=== PATIENT | female | born 1990 | race Caucasian/White ===

== ENCOUNTER 2016-05-24 07:36 | Inpatient (IN) | payer OTHER ==
[~2016-05-24] VITALS: Ht 167.6 cm; Wt 69.4 kg
[~2016-05-24 07:36] MED LIST: Ascorbic Acid PO; BUPR2TAB SL; DOCU-41 PO; FERR-74 PO; IBUP-1827 PO; PREN-56 PO; RANI75TA72 PO
[2016-05-24] MEDS ORDERED: Lactated Ringer's 1,000 ML IV SCH ×2 (08:47→11:25)
[2016-05-24] MEDS ORDERED: Methylergonovine 0.2 mg/mL Inj IM PRN ×2 (08:50→11:25)
[2016-05-24] MEDS ORDERED: Hemorrhage Kit, Post Partum XX ONE ×2 (08:50→11:25)
[2016-05-24] MEDS ORDERED: Oxytocin 10 Unit/mL Inj IM PRN ×2 (08:50→11:25)
[2016-05-24] MEDS ORDERED: Sodium Citrate-Citric Acid 15 mL Solution PO SCH (08:50)
[2016-05-24] MEDS ORDERED: Carboprost 250 mCg/mL Inj IM PRN ×2 (08:50→11:25)
[2016-05-24 08:55] LABS: Mean Corpuscular Volume 81.8 fL (81-100)
--- NOTE | 2016-05-24 09:31 | PCM.HPANE ---
Patient Data Surgeon Admitting Provider:Surjit Velez MD Attending Provider:Surjit Velez MD Primary Care Physician:Aden Grossman MD Other Provider:Andre Brewer Anesthesia Reason for Visit Repeat C/S REPEAT C/S Ht/WT & BMI Body Mass Index Allergies Coded Allergies: No Known Allergies (Unverified , 01/24/15) Diabetes History Hx Diabetes?: No MRSA MRSA: No Medications Hypertension Medication: No Home Meds Incl Beta Faustino: No Active Scripts Ibuprofen 600 Mg [id number] Mg PO Q6H PRN For Mild Pain #40 TABLET Ref 1 Prov:Surjit Velez MD 01/25/15 Ferrous Sulfate (Feosol)325 Mg Fkmycc231 Mg PO BIDWM #60 TABLET Ref 2 Prov:Surjit Velez MD 01/25/15 Docusate Sodium (Colace)100 Mg Khxfdcj888 Mg PO BID #60 CAPSULE Ref 2 Prov:Surjit Velez MD 01/25/15 [Ascorbic Acid] (Vitamin C)500 MG TABLET No Conflict Tuzkm160 Mg PO BIDWM #60 TABLET Ref 2 Prov:Surjit Velez MD 01/25/15 Reported Medications Pew351/Iron Fumarate/FA/Dss ( 19 Tablet)1 Each Tablet1 Each PO DAILY 01/24/15 Ranitidine HCl (Heartburn Relief)75 Mg Acmxtb52 Mg PO BID #2 TABLET 01/24/15 Buprenorphine 2 Mg Tab.subl2 Mg SL DAILY withdrawl #1 TABLET Ref 0 01/24/15 History Hx of Heart Problems?: No Cardiovascular History: Denies:: Chest Pain Hypertension Irregular Heartbeat Hx of Respiratory Problem?: No Respiratory History: Denies:: Asthma Hx Neurologic Problems?: No Neurological History: Denies:: Headaches Hx of GI Problems?: Yes Gastrointestinal History: Positive for:: Gastroesphageal Reflux (while - taking ranitidine) Female Hx: Positive for:: Currently Musculoskeletal History: Positive for:: Back Injury (LBP while ) Hx Surgeries?: No Hx Diabetes: No Hx Substance Use: Yes (h/o heroin abuse - clean 18 mos., on Suboxone) Smoking Status: Former Smoker Stop/Bang Treated for Sleep Apnea?: No Do You Have a CPAP Machine?: No BRADLEY Risk Assessment: Low Risk, <3 Yes Risk Assessment Category Category 1A: Patient has history of documented sleep apnea, and HAS NOT received any narcotic, sedative or anesthesia administration during this stay. Category 1B: Patient has history of documented sleep apnea, and HAS received any narcotic , sedative or anesthesia administration during this stay Category 2: Patient has SUSPECTED Obstructive Sleep Apnea, and HAS received any narcotic , sedative or anesthesia administration during this stay. Category 3: Patient has SUSPECTED Obstructive Sleep Apnea and HAS NOT received narcotic, sedative or anesthesia administration during this stay. Category 4: Outpatient in Procedural Areas with known sleep apnea or who screen positive for High Risk via the STOP/BANG questionnaire. Exam Exam General Appearance: Oriented X3 HEENT/AIRWAY: MP 1 Lungs: Normal Air Movement Heart: Regular Rate/Rhythm Meds/Labs/Diagnostics Labs Test 05/24/16 08:10 White Blood Count 10.3th/mm3 (3.8-10.1) Red Blood Count 4.23mil/mm3 (3.90-5.20) Hemoglobin 11.0g/dL (12.0-15.6) Hematocrit 34.6% (35.0-46.0) Mean Corpuscular Volume 81.8fL (81-100) Mean Corpuscular Hemoglobin 26.0pg (27.0-35.0) Mean Corpuscular Hemoglobin Concent 31.8% (32.0-37.0) Red Cell Distribution Width 12.8% (12.3-15.4) Platelet Count 243bil/L (150-400) Plan Impression Patient chart reviewed, patient interviewed and anesthestic plan with risks, benefits, and alternatives discussed, and informed consent obtained. ASA Physical Status: ASA3 Severe Disease Anesthetic Plan: SAB Bene/Risks/Altern/Consents: Yes HP Complete Prior to Induction: Yes Flako Mascorro MD May 24, 2016 09:31
[2016-05-24] MEDS ORDERED: CeFAZolin Inj 2 GM in IV Premix 1 EACH IV ONE (09:35)
[2016-05-24] MEDS ORDERED: Morphine PF 1 mg/mL 10 mL Inj ONE (09:36)
[2016-05-24] MEDS ORDERED: Atropine 0.4 mg/mL Inj IV PRN (09:45)
[2016-05-24] MEDS ORDERED: EPHEDrine Sulfate 50 mg/mL Inj IVPUSH PRN (09:45)
[2016-05-24] MEDS ORDERED: Phenylephrine/NS-PF 100 mCg/mL 5 mL Syringe IVPUSH PRN (09:45)
[2016-05-24] MEDS ORDERED: fentaNYL-PF 50 mCg/mL 2 mL Inj IVPUSH PRN (09:45)
[2016-05-24] MEDS ORDERED: Morphine PF 1 mg/mL 10 mL Inj EPIDURAL ONE (09:45)
[2016-05-24] MEDS ORDERED: MetoCLOpramide 5 mg/mL 2 mL Inj IVPUSH PRN (09:45)
[2016-05-24] MEDS ORDERED: Dexamethasone 4 mg/mL Inj IVPUSH PRN (09:45)
[2016-05-24] MEDS ORDERED: HYDROmorphone 1 mg/mL Inj IVPUSH PRN (09:45)
[2016-05-24] MEDS ORDERED: Ondansetron 2 mg/mL 2 mL Inj IVPUSH PRN (09:45)
--- NOTE | 2016-05-24 11:24 | PCM.ANEP2 ---
Post Anesthesia Evaluation ASA/CMS Post Anesthesia VS in Patient's Normal Range?: Yes Resp Stable; Airway Patent?: Yes CV Function & Hydration Stable: Yes Mental Status Recovered?: Yes Pain control Satisfactory?: Yes N/V Control Satisfactory?: Yes Flako Mascorro MD May 24, 2016 11:24
--- NOTE | 2016-05-24 11:24 | PCM.ANEP1 ---
Post Anesthesia Phase 1 PACU Phase 1 Assessment Anesthetic Administered: SAB Level of Alertness: Awake, talking Pain: No Nausea or Vomiting: No Lungs: Normal Air Movement Flako Mascorro MD May 24, 2016 11:24
[2016-05-24] MEDS ORDERED: Oxytocin 30 Units/500 mL LR 30 UNITS in IV Premix 1 EACH IV PRN (11:25)
[2016-05-24] MEDS ORDERED: LANOlin HPA 7 Gm Ointment TOPICAL PRN (11:25)
[2016-05-24] MEDS ORDERED: Acetaminophen IV 1,000 MG in IV Premix 1 EACH IV ONE (11:25)
[2016-05-24] MEDS ORDERED: Sodium Chloride LOK Flush 10 mL Syringe IVFLUSH PRN (11:25)
--- NOTE | 2016-05-24 13:38 | HP ---
[address] [address] HISTORY AND PHYSICAL PATIENT: SASHA WYNN : 1990 MR#: [id number] ADMIT: 05/24/2016 JOB ID: [id number] ADMISSION DIAGNOSIS: Elective primary for breech presentation at term. HISTORY OF PRESENT ILLNESS: Patient is a 25-year-old, 4, para 1-0-2-1, at 39 weeks and 2 days gestation by eight weeks ultrasound. Had her complicated with the following. 1. History of heroin abuse. Last use was November 2013. The patient is currently on Subutex 2.5 mg daily dispensed by [facility] in [place]. 2. History of chlamydia in 2009, treated, and chlamydia cultures during this were negative. 3. History of heartburn, improved. 4. Prior history of marijuana use. No current use during . The patient denied any vaginal bleeding, leakage of fluid, contractions. Reports movements. PAST OBSTETRICAL HISTORY: Elective termination of at 6 weeks x2, with suction D and C both times. In 2014, 40 weeks ended with spontaneous vaginal delivery with no complications and the current . PAST GYNECOLOGIC HISTORY: No history of abnormal Pap smears. Prior history of Chlamydia in 2009 that was treated. PAST MEDICAL HISTORY: Heartburn, nausea, vomiting in that resolved. PAST SURGICAL HISTORY: Suction D and C x2. ALLERGIES: No known drug allergies. MEDICATIONS: 1. vitamins. 2. Subutex 2.5 mg daily. SOCIAL HISTORY: Denied any cigarette smoking. Denied any alcohol consumption. History of heroin abuse as mentioned above. Last use November 2013. LABS: Rh positive, antibody negative, rubella immune, serology nonreactive, hepatitis B surface antigen negative. HIV nonreactive. GC, Chlamydia cultures negative. GBS cultures negative. PHYSICAL EXAMINATION: Patient is alert, oriented x3. Vital signs are 122/74 blood pressure. Respirations are 16. Pulse is 79. Temperature 37.1 degrees centigrade. Pulse ox is 100% on room air. Heart is regular rate and rhythm. Positive S1, S2. Lungs clear to auscultation bilaterally. Abdomen: Gravid uterus, nontender. Positive bowel sounds. Perineum: No bleeding. Lower extremities: No calf tenderness appreciated bilaterally. Bedside ultrasound confirmed breech presentation. On admission, heart tracing is showing baseline of 130 beats per minute, positive accelerations, no decelerations, moderate variability, reactive tracing. ASSESSMENT AND PLAN: Patient is 25-year-old, 4, para 1-0-2-1, at 39 weeks 2 days gestational age by eight week ultrasound, admitted for primary section secondary to breech presentation. 1- Consent signed. 2- Antibiotics for prophylaxis. 3- SCDs for DVT prophylaxis. All the above discussed in details with the patient. The patient agreed to the plan. [facility]
[2016-05-24] MEDS ORDERED: Oxytocin 10 Unit/mL Inj ONE (13:59)
[2016-05-24] MEDS ORDERED: MetoCLOpramide 5 mg/mL 2 mL Inj ONE (13:59)
[2016-05-24] MEDS ORDERED: Bupiv-Spinal 0.75%/Dex 8.25% 2 mL Inj ONE (13:59)
[2016-05-24] MEDS ORDERED: Phenylephrine/NS 100 mCg/mL 10 mL Syringe IVPUSH ONE (13:59)
[2016-05-24] MEDS ORDERED: Ondansetron 2 mg/mL 2 mL Inj ONE (13:59)
[2016-05-24] MEDS ORDERED: Dexamethasone 4 mg/mL Inj ONE (13:59)
[2016-05-24] MEDS: oxyCODONE-Acetamin 5-325 mg Tablet PO PRN ×2 (16:08→22:21)
--- NOTE | 2016-05-24 23:22 | OP ---
[address] [address] OPERATIVE REPORT PATIENT: SASHA WYNN : 1990 MR#: [id number] ADMIT: 05/24/2016 JOB ID: [id number] DATE OF SURGERY: 05/24/2016 PREOPERATIVE DIAGNOSIS(ES): A 25-year-old, 4, para 1-0-2-1, at 39 weeks and 2 days gestational age by eight week ultrasound, in breech presentation. POSTOPERATIVE DIAGNOSIS(ES): A 25-year-old, 4, para 1-0-2-1, at 39 weeks and 2 days gestational age by eight week ultrasound, in breech presentation. PROCEDURE: Primary low transverse . SURGEON: Surjit Velez MD. SYSTEMS SUPPORT SPECIALIST: Dr. Ross. ANESTHESIA: Spinal. ESTIMATED BLOOD LOSS: 500 cc. INTRAVENOUS FLUIDS: 1500 cc of crystalloid. COMPLICATIONS: None. PACKS: None. DRAINS: None. CATHETERS: Shirley catheter in place. SPECIMEN REMOVED: Placenta, disposed. OPERATIVE FINDINGS: 1. Normal fallopian tubes and ovaries bilaterally. 2. Single viable male infant with Apgars 9/10, weight of 3355 g. 3. Baby was in sulma breech presentation with sacro-anterior position. PROCEDURE: Risks, benefits, and alternatives of the procedure discussed with the patient. Informed consent signed. Patient moved to the OR with IV running. After spinal anesthesia was found to be adequate, the patient placed in dorsal supine position with a leftward tilt, prepped and draped in the normal sterile fashion. Pfannenstiel skin incision was made with a scalpel 2 cm above symphysis pubis and carried down to underlying fascia with the scalpel. Fascial incision extended bilaterally with Avery scissors. Inferior aspect of fascial incision grasped with Epi clamps, elevated, tented up, and rectus muscle dissected off bluntly and sharply. Attention was then turned to the superior aspect of fascial incision, which in a similar fashion was grasped with Epi clamps, elevated, tented up. Rectus muscle dissected off bluntly and sharply. Rectus muscles were then in midline with blunt and sharp dissection and then peritoneum entered bluntly with traction counter traction. Upon good visualization of the bladder, peritoneal incision extended superiorly and inferiorly. Bladder blade inserted. Vesicouterine peritoneum was identified, entered sharply with the Metzenbaum scissors. Bladder flap created digitally. Bladder blade reinserted. Uterus incised in midline with scalpel. Uterine incision extended bilaterally with bandage scissors and baby was in sulma breech presentation in sacral anterior position. Baby breech delivered through the hysterotomy, followed by the trunk, using a wet towel. With rotational movements both upper extremities delivered and the head was delivered easily with fundal pressure. Delayed cord clamping allowed for 60 seconds. Cord clamped and cut. Infant handed off to the awaiting nurse. Placenta expressed with fundal pressure and uterus exteriorized, cleared of all clots and debris. The uterine incision repaired in two layers, first a continuous locked fashion of 0-Vicryl suture, second layer of imbrication with 0-Vicryl suture. Good hemostasis assured. Suction, irrigation confirmed hemostasis. Uterus returned back to the abdomen. A few [id number] 2-0 chromic sutures were added to confirm hemostasis at the level of the hysterotomy repair. All instruments removed from patient's abdomen. Muscle approximated in midline with interrupted sutures of 2-0 chromic. Fascia closed with continuous fashion of 0-Vicryl suture. Subcutaneous layer closed with interrupted sutures of 2-0 chromic. Skin closed in subcuticular fashion with 4-0 Vicryl suture. Good hemostasis assured. Pressure dressing applied. Patient tolerated the procedure well. Sponge, lap, needle, and instrument counts were correct x2. Dr. Velez was present and scrubbed for the entire procedure. [facility], [place]
[2016-05-24] MEDS: hydrOXYzine Pamoate 25 mg Capsule PO PRN (23:43)
[2016-05-25] MEDS: oxyCODONE-Acetamin 5-325 mg Tablet PO PRN ×5 (02:49→21:05)
[2016-05-25 07:04] LABS: Mean Corpuscular Hemoglobin 26.2 pg (27.0-35.0); Mean Corpuscular Volume 83.2 fL (81-100)
[2016-05-25] MEDS: Ascorbic Acid 500 mg Tablet PO SCH (07:40)
--- NOTE | 2016-05-25 17:23 | PCM.PNOBPP ---
Subjective Date of Service May 25, 2016 Post : Primary Ceserean Delivery Lochia: Normal Pain Management: PO pain meds Gastrointestinal: Good Appetite, No N/V, Other (regular diet ) Postop Activity: Ambulating in Room Only Rubella: Immune Blood Type: B (positive ) Labs Laboratory Tests 05/25/16 06:47: White Blood Count 19.1, Red Blood Count 3.74, Hemoglobin 9.8, Hematocrit 31.1, Mean Corpuscular Volume 83.2, Mean Corpuscular Hemoglobin 26.2, Mean Corpuscular Hemoglobin Concent 31.5, Red Cell Distribution Width 12.7, Platelet Count 249 Exam Vital Signs Vital Signs BP 120/69 HR 86 RR 16 SaO2 100% on RA T 36.7 Vital Signs: VS reviewed, stable Exam Abdomen: Uterus is, Fundus firm Lungs: Clear to Auscultation Heart: Exam Unremarkable, Regular Rate/Rhythm, Normal S1 General: Alert, Oriented X3 Surgical Wound : Incision General Appearence: Steri Strips, Sutures, Intact, Well Approximated, Incision Healing, No Erythemia, No Discharge, No Inflammatory Changes OB Post Assessment/Plan Assessment Patient is a 25-year-old, 4, para 2-0-2-2 1. POD#1 S/P Primary section for breech presentation. Appropriate post operative recovery, moderate pain control on (Oxycodone 5 , oxycodone -acetaminophen and ibuprofen 600 mg , will increase the ibuprofen to 800 mg at this time and may switch to 600 mg at discharge of needed. Encourage ambulation. 2. Post Operative Anemia, on iron. 3. Problem list during : 1. History of heroin abuse. Last use was November 2013. The patient is currently on Subutex 2.5 mg daily dispensed by [facility] in [place]. 2. History of chlamydia in 2009, treated, and chlamydia cultures during this were negative. 3. History of heartburn, improved. 4. Prior history of marijuana use. No current use during . Aden Grossman MD May 25, 2016 17:23
[2016-05-25] MEDS: hydrOXYzine Pamoate 25 mg Capsule PO PRN (21:10)
[2016-05-26] MEDS: oxyCODONE-Acetamin 5-325 mg Tablet PO PRN ×4 (01:50→13:55)
[2016-05-26] MEDS: Ascorbic Acid 500 mg Tablet PO SCH (08:12)
--- NOTE | 2016-05-26 11:35 | PCM.DIOB ---
Obstetrical Disch Instruction Date of Service: May 26, 2016 Dates of Hospitalization Date of Hospital Admission May 24, 2016 at 07:36 Providers Admitting Physician: Surjit Velez MD Primary Care Physician: Aden Grossman MD Attending Physician: Surjit Velez MD Discharge Diagnosis Discharge Diagnosis POD#2 S/P PLTCS for breech presentation, Anemia Problems: Diet Discharge Diet: No restrictions Activity Discharge Activity-General: Pelvic Rest for 6 weeks, No lifting >10 pounds for 4-6 weeks Dressing and Incisional Care Dressing Care: Keep dressing clean, dry & intact Hygiene: May shower Follow Up Plan Follow-up Provider (F9): Surjit Velez MD Follow-up appointment: Weeks (2) Call your provider for: Fever or Chills, Shortness of breath, Heavy vaginal bleeding, Other (excessive pain not controlled with pain medications, abnormal wound discharge.) Surjit Velez MD May 26, 2016 11:35
[2016-05-26] MEDS ORDERED: Ascorbic Acid PO (11:38)
[2016-05-26] MEDS ORDERED: IBUP-1827 PO (11:38)
[2016-05-26] MEDS ORDERED: DOCU-41 PO (11:38)
[2016-05-26] MEDS ORDERED: OXYC1TAB24 PO (11:38)
[2016-05-26] MEDS ORDERED: FERR-74 PO (11:38)
--- NOTE | 2016-05-26 21:23 | DIS ---
[address] [address] DISCHARGE SUMMARY PATIENT: SASHA WYNN : 1990 MR#: [id number] ADMIT: 05/24/2016 JOB ID: [id number] DIS: 05/26/2016 Admitted at term for elective primary due to breech presentation. Discharged on May 26, 2016. DISCHARGE DIAGNOSIS: Postoperative day #2, status post primary low transverse section and anemia. For further details, please refer to the fully dictated notes. On the day of discharge, the patient had no complaints. Voiding, ambulating, tolerating p.o. intake. with no difficulties. OBJECTIVE: Vital signs are 111/64 for blood pressure. Respirations are 16. Pulse is 90. Temperature is 36.6 degrees centigrade. Heart: Regular rate and rhythm. Positive S1, S2. Lungs clear to auscultation bilaterally. Abdomen firm uterine fundus palpated at 2 cm below the umbilicus. Incision is clean, dry, and intact with Steri-Strips in place. Appropriate tenderness around the incision. Perineum: No active bleeding. Lower extremities: No calf tenderness appreciated bilaterally. H and H on postop day #1 is 9.8 and 31.1. Platelets are 249. White blood count 19.1. DISCHARGE PLAN: Patient will be discharged home in a stable condition. Will follow up with Dr. Velez in the office in two weeks. Instructed to have nothing in the vagina for six weeks. No heavy lifting more than baby's weight. Instructed to call for fever, chills, severe abdominal pain uncontrolled with pain medication, heavy vaginal bleeding, abnormal wound discharge or any other concerning symptoms. DISCHARGE MEDICATIONS: 1. Percocet 5/325 one tablet every 4 hours as needed for severe pain. 2. Ibuprofen 600 mg every 6 hours for moderate pain. 3. Colace 100 mg twice daily. 4. Ferrous sulfate 325 mg twice daily. 5. Vitamin C 500 mg twice daily. The patient was instructed to stop her Subutex while she is taking the Percocet as previously recommended by her therapist at [facility]. Patient understood the discharge instructions. She will comply with her discharge plan. [facility]
== END 2016-05-26 14:00 | disposition home or self-care (01) | DRG 765 ==
LOC: FBC 07:36 → EDSTATUS 09:15
PROVIDERS: ADMIT Obstetrics & Gynecology; ATTEND Obstetrics & Gynecology
PROC: 10D00Z1 Extraction of Products of Conception, Low, Open Approach (ICD-10-PCS; principal; 2016-05-24 09:15)
DX: O64.1XX0 Obstructed labor due to breech presentation, not applicable or unspecified (principal); F11.20 Opioid dependence, uncomplicated; O99.323 Drug use complicating pregnancy, third trimester; Z3A.39 39 weeks gestation of pregnancy; Z37.0 Single live birth